=== PATIENT | female | born 1940 | race Caucasian/White ===

== ENCOUNTER 2020-06-15 | Emergency (ER) | payer MEDICARE, OTHER ==
[~2020-06-15] MED LIST: AMITRIPTYLINE H25 MG PO; ANTI-DIARRHE2 M1 PO; BL IBUPROFEN200 MG PO; CARBAMAZEPIN200 MG PO; CHOLESTYRAMINE4 G1 PO; CIPROFLOXACIN500 M1 PO; CITALOPRAM10 MG PO; COMBIVENT RESPIMAT IN; COZAAR50 MG PO; DITROPAN PO; GABAPENTIN100 MG PO; GABAPENTIN300 MG PO; GLIPIZIDE10 MG PO; IPRATROPIU0.5 MG/3 M IN; JANUVIA100 MG PO; KEFLEX500 M1 PO; LOMOTIL2.5 MG PO; LOSARTAN POT50 MG PO; METFORMIN1000 MG PO; METFORMIN500 M2 PO; METFORMIN500 MG PO; MYRBETRIQ25 MG; NAPROXEN500 MG PO; NEURONTIN300 MG PO; NITROFURANTOIN50 MG PO; SYMBICORT1 AE1 IN; TEGRETOL PO; TRUETRACK XX; TRULICITY0.75 MG/0. IJ
== END 2020-06-15 21:15 | disposition home or self-care (01) ==
DX: S00.03XA Contusion of scalp, initial encounter (principal); S00.01XA Abrasion of scalp, initial encounter; I10 Essential (primary) hypertension; F03.90 Unspecified dementia, unspecified severity, without behavioral disturbance, psychotic disturbance, mood disturbance, and anxiety; G50.0 Trigeminal neuralgia; F17.200 Nicotine dependence, unspecified, uncomplicated; W01.0XXA Fall on same level from slipping, tripping and stumbling without subsequent striking against object, initial encounter; Y92.099 Unspecified place in other non-institutional residence as the place of occurrence of the external cause

== ENCOUNTER 2020-06-17 | Emergency (ER) | payer MEDICARE, OTHER ==
[2020-06-17] MEDS ORDERED: NICODERM C21 MG/242 TOP (22:08)
== END 2020-06-17 22:40 ==
DX: S00.83XA Contusion of other part of head, initial encounter (principal); F03.90 Unspecified dementia, unspecified severity, without behavioral disturbance, psychotic disturbance, mood disturbance, and anxiety; I10 Essential (primary) hypertension; G50.0 Trigeminal neuralgia; Z87.891 Personal history of nicotine dependence; W18.30XA Fall on same level, unspecified, initial encounter; Y92.091 Bathroom in other non-institutional residence as the place of occurrence of the external cause

== ENCOUNTER 2020-06-21 21:38 | Observation (INO) | payer MEDICARE, OTHER ==
[~2020-06-21] VITALS: Ht 160 cm; Wt 86.0 kg
[~2020-06-21 21:38] MED LIST changes: +NICODERM C21 MG/242 TOP
--- NOTE | 2020-06-21 21:43 | NUR ---
PATIENT TO ROOM 10 VIA EMS, AAOX3
[2020-06-21 22:02] LABS: HEMATOCRIT 37.1 % (37.0-47.0); HEMOGLOBIN 12.5 g/dl (12.0-16.0); IMMATURE GRANULOCYTES 0.5 % (0.0-5.0); MEAN CELL VOLUME 92.1 fL CALC (80.0-100.0); MEAN CORPUSCULAR HGB CONC 33.7 g/dL CAL (32.0-36.0); NEUT# 3.88 thou/uL (2.00-7.15); RED BLOOD COUNT 4.03 mill/uL (4.20-5.60); RED CELL DISTRI WIDTH 12.7 % (11.5-15.5)
[2020-06-21 22:29] LABS: ALBUMIN 4.1 g/dL (3.2-5.0); ALKALINE PHOSPHATASE 98 u/l (38-126); ANION GAP 11 (6-22 (CALC)); BILIRUBIN, TOTAL 0.6 mg/dL (0.0-1.4); BUN 13 mg/dL (8-23); BUN/CREATININE RATIO 19 (12-20 (CALC)); CARBON DIOXIDE 30 mmol/l (22-30); CHLORIDE 91 mmol/l (95-108); CREATININE 0.7 mg/dL (0.5-1.0); GFR > 60 ML/MIN (>=60 (CALC)); GFR FOR AFR.AMER. > 60 ML/MIN (>=60 (CALC)); POTASSIUM 3.9 mmol/l (3.5-5.1); SGOT/AST 28 u/l (9-36); SODIUM 128 mmol/l (137-146); TOTAL PROTEIN 6.8 g/dL (6.3-8.2)
[2020-06-21 22:34] LABS: MYOGLOBIN 76 ng/mL (0 - 62)
--- NOTE | 2020-06-21 23:00 | NUR ---
PT RESTING COMFORTABLY ASKING FOR A SANDWICH
[2020-06-22] VITALS (7 sets, daily range): BP systolic 150–184; BP diastolic 67–80
--- NOTE | 2020-06-22 00:16 | NUR ---
GAVE REPORT RN AND THE OPPORTUNITY TO ASK QUESTIONS. TELE BOX APPLIED TO PT AND WILL TRANSPORT TO ROOM ASSIGNED
--- NOTE | 2020-06-22 01:35 | NUR ---
PATIENT ADMITTED FROM ER VIA STRETCHER WITH ER STAFF IN ATTENDANCE. PATIENT ADMITTED WITH HYPONATREMIA AND FREQUNT FALLS FROM THE [facility]. PATIENT WITH HEAD CONTUSION WELL. PATIENT IS VERY UNSTEADY ON HER FEET WHEN TRANSFERRED FROM STRETCHER TO BED WITH 2 ASSIST. PATIENT IS ALERT AND ORIENTED TO PERSON AND PLACE BUT ADMITS TO BEING VERY FORGETFUL. HX OF DEMENTIA PER [facility] RECORDS. ORIENTED TO PERSON AND TO HOSPITAL BUT NOT TO [facility]. THINKS THAT SHE IS AT HOSPITAL ON [facility]. STATES THAT SHE IS FROM [place]. ORIENTED TO PRESIDENT AND YEAR. DENIES ANY ALLERGIES. IV SITE TO LAC INTACT AND HEALTHY WITH GOOD BLOOD RETURN. IVF NS HUNG AND INFUSING AT 125CC/HR. PATIENT ADMITS THAT SHE IS INCONT OF BOTH BOWEL AND BLADDER-STATES THAT IT JUST COMES. PATIENT WITH SATURATED BREIF ON FROM [facility]. PERINEAL IS VERY RED AND IRRITATED. PERINEAL CARE GIVEN WITH SOAP AND WATER. BARRIER CREAM APPLIED TO AFFECTED AREA. THINKS THAT HER LAST BM WAS YESTERDAY. ABD IS SOFT WITH ACTIVE BS.LUNGS ARE CLEAR. NO COUGH.NO PERIPHERAL EDEMA NOTED. PULSES ARE PALPABLE. ORIENTED PATIENT TO ROOM AND SURROUNDIONGS. INSTRUCTED ON USE OF NURSE CALL [employer] SYSTEM, TV REMOTE AND PHONE. PURE WICK WAS APPLIED FOR URINARY INCONT. SAFETY PRECAUTIONS REINFORCED. BED ALARM IN PLACE FOR PATIENT SAFETY. CALL LIGHT IN REACH. WILL CONT TO MONITOR.
--- NOTE | 2020-06-22 04:30 | NUR ---
PATIENT RESTING IN BED AT THIS TIME WITH EYES CLOSED. RESPS ARE EVEN AND UNLABORED. TELE MONITOR IN PLACE. PUREWICK IN PLACE AND DRAINING YELLOW URINE. URINE SPEC OBTAINED AND SENT TO LAB. IVF NS PATENT AND INFUSING VIA LAC SITE. BED ALARM IN PLACE. CALL LIGHT IN REACH. WILL CONT TO MONITOR.
[2020-06-22 05:23] LABS: URINE BILIRUBIN - DIPSTICK NEGATIVE (NEGATIVE); URINE BLOOD DIPSTICK MODERATE (NEGATIVE); URINE COLOR YELLOW; URINE GLUCOSE - DIPSTICK NEGATIVE (NEGATIVE); URINE KETONE NEGATIVE (NEGATIVE); URINE PROTEIN - DIPSTICK NEGATIVE (NEG-TRACE); URINE SPECIFIC GRAVITY <=1.005; URINE UROBILINOGEN - DIPSTICK 0.2 E.U./dL (0.2)
[2020-06-22 05:30] LABS: URINE BACTERIA FEW hpf; URINE LEUK ESTERASE LARGE (NEGATIVE); URINE NITRITE - DIPSTICK NEGATIVE (Negative); URINE SQUAMOUS EPITHELIAL CELL FEW EPI/hpf (0-FEW); URINE WBC 50-100 WBC/hpf (0-5)
--- NOTE | 2020-06-22 07:13 | NUR ---
Patient is screened for rehab intervention and would benefit from PT consult and also at least a speech therapy screen for cognitive and or swallowing assessment if medical agrees
--- NOTE | 2020-06-22 08:27 | NUR ---
PT SEEN AWAKE, ALERT, ORIENTED X 3. LUNGS CLEAR, RA. NO DISTRESS. PT AT REST IN THE BED. PUREWICK IN PLACE.
--- NOTE | 2020-06-22 09:32 | NUR ---
NICOTINE PATCH PLACED ON RT SHOULDER
--- NOTE | 2020-06-22 12:41 | NUR ---
PT RESTS IN THE BED, NO DISTRESS. BRITTA LIVINGSTON HAS CALLED AND AN UPDATE WAS PROVIDED WITH PT'S PERMISSION, .
--- NOTE | 2020-06-22 15:47 | NUR ---
PT CALLS APPROPRIATELY FOR BSC, ASSISTED TO SAME. SHE IS SORE FROM FREQUENT FALLS, MOVING STIFFLY. NO DISTRESS, NO CONFUSION NOTED.
--- NOTE | 2020-06-22 20:00 | NUR ---
PATIENT RESTING IN BED AT THIS TIME-AWAKE ALERT AND ORIENTED TO PERSON AND KNOW SHE IS IN THE HOSPITAL-NOT SURE OF THE NAME. KNOWS HER AND PRESIDENT. FORGETFUL. TELE MONITOR IN PLACE. IVF NS PATENT AND INFUSING VIA LAC SITE AT 50CC/HR. SITE IS HEALTHY. PUREWICK IN PLACE FOR U RINE INCONT-DRAINING YELLOW URINE. PUREWICK WAS CHANGE AND PERINEAL CARE GIVEN-STILL RED AND BARRIER CREAM APPLIED. SAFETY PRECAUTIONS REINFORCED. BED ALARM IN LACE FOR PATIENT SAFETY. CALL LIGHT IN REACH. WILL CONT TO MONITOR.
[2020-06-23] VITALS: BP 171/78
--- NOTE | 2020-06-23 01:26 | NUR ---
PATIENT RESTING IN BED WITH HOB SLIGHTLY ELEVATED AND EYES CLOSED. RESPS ARE EVEN AND UNLABORED. TELE MONITOR IN PLACE. IVF PATENT AND INFUSING VIA LAC SITE AT 50CC/HR. PUREWICK DRAINING YELLOW URINE. CALL LIGHT IN REACH. BED ALARM IN PLACE FOR PAITENT SAFETY. CALL LIGHT IN REACH. WILL CONT TO MONITOR.
--- NOTE | 2020-06-23 04:04 | NUR ---
PATIENT RESTING IN BED WITH EYES CLOSED. RESPS ARE EVEN AND UNLABORED. APPEARS SLEEPING. TELE MONITOR IN PLACE. IVF NS PATENT AND INFUSING VIA LAC SITE AT 50CC/HR. PURE WICK CONT TO DRAIN YELLOW URINE. BED ALARM IN PLACE FOR PATIENT SAFETY. CALL LILGHT IN REACH. WILL CONT TO MONITOR.
[2020-06-23 04:09] VITALS: BP 150/68
[2020-06-23 05:39] LABS: HEMOGLOBIN 11.2 g/dl (12.0-16.0); MEAN CELL VOLUME 94.4 fL CALC (80.0-100.0); MEAN CORPUSCULAR HGB 31.1 pG CALC (26.0-32.0); MEAN CORPUSCULAR HGB CONC 32.9 g/dL CAL (32.0-36.0); RED BLOOD COUNT 3.6 mill/uL (4.20-5.60)
[2020-06-23 06:11] LABS: ANION GAP 8 (6-22 (CALC)); BUN 13 mg/dL (8-23); BUN/CREATININE RATIO 22 (12-20 (CALC)); CARBON DIOXIDE 29 mmol/l (22-30); CHLORIDE 101 mmol/l (95-108); CREATININE 0.6 mg/dL (0.5-1.0); GFR > 60 ML/MIN (>=60 (CALC)); GFR FOR AFR.AMER. > 60 ML/MIN (>=60 (CALC)); POTASSIUM 3.9 mmol/l (3.5-5.1); SODIUM 133 mmol/l (137-146)
--- NOTE | 2020-06-23 07:00 | NUR ---
RECIEVED REPORT FROM TIM MARTIN
[2020-06-23 07:34] VITALS: BP 160/75
--- NOTE | 2020-06-23 07:34 | NUR ---
PT RESTING IN SEMI FOWLERS POSITION UPON ENTERING ROOM. PT IS A/O X2. ASSESSMENT AND VITALS COMPLETED. BP 160/75, HR 66, O2 94% ON ROOM AIR. REPSIRATIONS ARE EVEN AND UNLABORED WITH NO DISTRESS NOTED. LUNG SOUNDS ARECLEAR. HEART RHYTHM IS NORMAL WITH TELE IN PLACE.BOWEL SOUNDS ARE ACTIVE. RADIAL AND PEDAL PULSES ARE STRONG. #20G IN LAC INFUSING WITH IVF @50, SITE REMAINS HEALTHY AND PATENT. PURE WHICK IN PLACE. SISSY REDDNED. PT DENIES OF ANY PAINS OR DISCOMFORTS AT THIS TIME. ALL SAFETY PRECAUTIONS ARE IN PLACE WITH CALL LIGHT IN REACH AND BED ALARM ACTIVATED. WILL CONTINUE TO MONITOR.
--- NOTE | 2020-06-23 09:30 | NUR ---
LARGE BM X2. SISSY CARE ADMINISTERED.NEW PURE WHICK APPLIED. PT DENIES OF ANY COMPLAINTS.ALL SAFETY PRECAUTIONS ARE IN PLACE WITH CALL LIGHT IN REACH. WILL CONTINUE TO MONITOR.
[2020-06-23 10:35] VITALS: BP 149/76
--- NOTE | 2020-06-23 11:23 | NUR ---
PT SLEEPING IN SEMI FOWLERS POSITION. REPSIRATIONS ARE EVEN AND UNLABORED WITH NO DISTRESS NOTED. IVF INFUSING PER ORDER, SITE REMAINS HEALTHY AND PATENT. ACCUCHECK RESULTING IN 138, NO COVERAGE NEEDED. NO SIGNS OF ANY PAINS OR DISCOMFORTS. ALL SAFETY PRECAUTIONS ARE IN PLACE WITH CALL LIGHT IN REACH. WILL CONTINUE TO MONITOR.
--- NOTE | 2020-06-23 12:40 | NUR ---
PT RESTING IN SEMI FOWLERS POSITION WATCHING TV.RESPIRATIONS ARE EVEN AND UNLABORED WITH NO DISTRESS NOTED.IVF INFUSING PER ORDER, SITE REMAINS HEALTHY AND PATENT.PURE WHICK REMAINS IN PLACE.TELE MONITORING IN PLACE.PT DENEIS OF ANY PAINS OR DISCOMFORTS. ALL SAFETY PRECAUTIONS ARE IN PLACE WITH CALL LIGHT IN REACH AND BED ALARM ACTIVE.WILL CONTINUE TO MONITOR.
[2020-06-23 15:00] VITALS: BP 140/76
--- NOTE | 2020-06-23 15:07 | NUR ---
FLATWORK ASSEMBLER NOTIFIED OF D/C TO [facility]. PT INFORMED. VERBALIZED UNDERSTANDING.
--- NOTE | 2020-06-23 15:47 | NUR ---
ATTEMPTED TO CALL FAMILY TO EDUCATE ON DISCHARGE INSTRUCTIONS. NO ANSWER. VOICE MAIL LEFT.WILL ATTEMPT AGAIN LATER ON.
--- NOTE | 2020-06-23 15:49 | NUR ---
NOTIFIED BY CM THAT ETA FOR RESTAURANT TEAM MEMBER WAS 650
--- NOTE | 2020-06-23 16:25 | NUR ---
PT RESTING IN SEMI FOWLERS POSITION. RESPIRATIONS ARE EVEN AND UNLABORED WITH NO DISTRESS NOTED ON ROOM AIR. #20G IN LAC REMOVED UPON ENTERING ROOM, CATHATER STILL INTACT. PURE WHCIK IN PLACE, LOW SUCTION. TELE MONITORING IN PLACE. PT DENIES OF ANY PAINS OR DISCOMFORTS.PT INFORMED OF ETA OF [facility]ICCK UP AT 1830, PT VERBLAIZED UNDERSTANDING. ALL SAFETY PRECAUTIONS ARE IN PLACE WITH CALL LIGHT IN REACH AND BED ALARM ACTIVE. WILL CONTINUE TO MONITOR
--- NOTE | 2020-06-23 17:54 | NUR ---
DAUGHTERIN LAW SHAHEEN INFORMED OF DISCHARGE INSTRUCTIONS.VERBLAIZED UNDERSTANDING.
--- NOTE | 2020-06-23 18:30 | NUR ---
Discharge instructions given. Patient verbalizes understanding of same. Discharged in stable condition via Wheelchair to Home with staff. All belongings sent with pt. PT DISCHARGED TO [facility] VIA [facility] TRANSPORT IN STABLE CONDITION WITH ALL DISCHARGE INSTRUCTIONS AND BELONGINGS. ASKED PT WHERE CELL PHONE WAS, PT STATED " I THREW IT AWAY, IT WASNT DOING ME ANY GOOD." MARRY RANGEL BEDSIDE TO WITNESS.
--- NOTE | 2020-06-23 18:48 | NUR ---
REPORT GIVEN TO JUAN MANUEL FROM [facility].
--- NOTE | 2020-06-23 19:12 | NUR ---
SHAHEEN CALLED AND INFORMED THAT PT STATED SHE THRW AWAY PHONE.
== END 2020-06-23 18:29 ==
LOC: ED 21:38 → ED-I 23:01 → ED 23:22 → MS2 23:23
PROVIDERS: Emergency Medicine; Nurse Practitioner; ADMIT Internal Medicine; ATTEND Internal Medicine
DX: S00.03XA Contusion of scalp, initial encounter (principal); E87.1 Hypo-osmolality and hyponatremia; N39.0 Urinary tract infection, site not specified; I10 Essential (primary) hypertension; E11.9 Type 2 diabetes mellitus without complications; F03.90 Unspecified dementia, unspecified severity, without behavioral disturbance, psychotic disturbance, mood disturbance, and anxiety; G50.0 Trigeminal neuralgia; F17.200 Nicotine dependence, unspecified, uncomplicated; W01.0XXA Fall on same level from slipping, tripping and stumbling without subsequent striking against object, initial encounter; Y92.099 Unspecified place in other non-institutional residence as the place of occurrence of the external cause; Z79.84 Long term (current) use of oral hypoglycemic drugs; Z91.81 History of falling; Z20.822 Contact with and (suspected) exposure to COVID-19
CPT/HCPCS: G0378; J1650

== ENCOUNTER 2020-09-25 12:19 | Inpatient (IN) | payer MEDICARE, OTHER ==
[~2020-09-25] VITALS: Ht 160 cm; Wt 72.0 kg
--- NOTE | 2020-09-25 12:19 | NUR ---
PT ARRIVES VIA EMS STRETHER TO ROOM # 3
[2020-09-25] MEDS ORDERED: POT CHLORIDE10 ME5 PO (12:46)
[2020-09-25] MEDS ORDERED: FUROSEMIDE20 MG PO (12:47)
[2020-09-25] MEDS ORDERED: FIBER-LAX625 MG PO (12:47)
[2020-09-25] MEDS ORDERED: COMBIVENT RESPIMAT IN (12:49)
[2020-09-25 13:04] LABS: HEMATOCRIT 38.9 % (37.0-47.0); HEMOGLOBIN 12.6 g/dl (12.0-16.0); IMMATURE GRANULOCYTES 0.4 % (0.0-5.0); MEAN CORPUSCULAR HGB 30.4 pG CALC (26.0-32.0); MEAN CORPUSCULAR HGB CONC 32.4 g/dL CAL (32.0-36.0); NEUT# 2.92 thou/uL (2.00-7.15); RED BLOOD COUNT 4.14 mill/uL (4.20-5.60); RED CELL DISTRI WIDTH 13.2 % (11.5-15.5)
[2020-09-25 13:23] LABS: ALBUMIN 4.2 g/dL (3.2-5.0); ALKALINE PHOSPHATASE 92 u/l (38-126); ANION GAP 13 (6-22 (CALC)); BUN 18 mg/dL (8-23); BUN/CREATININE RATIO 28 (12-20 (CALC)); CARBON DIOXIDE 31 mmol/l (22-30); CHLORIDE 91 mmol/l (95-108); CREATININE 0.7 mg/dL (0.5-1.0); GFR > 60 ML/MIN (>=60 (CALC)); GFR FOR AFR.AMER. > 60 ML/MIN (>=60 (CALC)); SGOT/AST 24 u/l (9-36); SODIUM 132 mmol/l (137-146); TOTAL PROTEIN 7.4 g/dL (6.3-8.2)
[2020-09-25 13:26] LABS: BILIRUBIN, TOTAL 0.2 mg/dL (0.0-1.4)
--- NOTE | 2020-09-25 13:30 | NUR ---
pt laying in supine position, denies any needs at this time. states having pain only when moved
--- NOTE | 2020-09-25 14:34 | NUR ---
PHONED CASE MANAGEMENT REFERENCE FAMILY NOT WANTING PATIENT TRANFERRED TO [facility]. SPOKE WITH GÉNESIS. PATIENT IS ALERT AND ORIENTED X3. POA AT BEDSIDE. PATIENT STATES THAT SHE DOES NOT WANT SURGERY AND ONLY REQUESTS PAIN MANAGEMENT. POA AGREES WELL AND STATES THAT THIS WAS THE FAMILY AND PATIENTS AGREEMENT IN PRIOR YEARS WELL. PATIENT AND FAMILY AGREES FOR PATIENT TO BE ADMITTED TO [facility] FOR PAIN MANAGEMENT AND [facility] PLACEMENT. DR FRANCISCO NOTIFIED.
--- NOTE | 2020-09-25 14:53 | NUR ---
two white rings were taken off of pt and given to the daughter in law
--- NOTE | 2020-09-25 15:10 | NUR ---
pt resting on stretcher. estes cath applied and linens changed.
--- NOTE | 2020-09-25 15:45 | NUR ---
pt asked to be repositioned. pt was made aware that with movement, it would cause much pain. pt verbalized understanding and states "just move it from where it is now, it hurts." once i did she yelled in pain. she then decided not to be repositioned. pt made comfortable best as possible.
[2020-09-25 16:00] VITALS: BP 179/83
--- NOTE | 2020-09-25 16:20 | NUR ---
gave report to aneta
--- NOTE | 2020-09-25 16:40 | NUR ---
Admission Note Report Given to: SHAMA Transported by: Wheelchair X Stretcher Transported with: X Nurse Transporter X Patent IV O2 Separator Tender Location: ICU X MS2
--- NOTE | 2020-09-25 17:19 | NUR ---
PT ARRIVES TO ROOM 280 FROM ER VIA STRETCHER, ACCOMPANIED BY TYREL DUMONT. PT IS ALERT AND ORIENTED X 3. LUNGS CLEAR, RA. PT WITH LEFT FEMORAL FRACTURE, UNCOMFORTABLE DURING TRANSFER TO BED. PILLOWS PLACED WHERE NEEDED, LESS UNCOMFORTABLE NOW.
[2020-09-25 18:42] VITALS: BP 160/70
[2020-09-25 20:30] VITALS: BP 160/70
--- NOTE | 2020-09-26 | NUR ---
Hourly rounding, PT refused any pain at this time. Re-educated about pain management and falls precautions. Lazaro catheter in place.
[2020-09-26 04:00] VITALS: BP 135/71
--- NOTE | 2020-09-26 04:25 | NUR ---
Hourly rouding. Pt observed calms, sleeping and resting, refuse pain at this time. Re-educated about falls amd safety precautions.
--- NOTE | 2020-09-26 04:30 | NUR ---
Hourly rounding. PT observed calm and sleep. Vitals signs are stable, refused pain at this time.
[2020-09-26 15:38] VITALS: BP 152/83
--- NOTE | 2020-09-26 20:00 | NUR ---
RECEIVED REPORT FROM MS.MARIE DUMONT. PT ORIENTED TO PERSON AND PLACE. VITAL ARE STABLE, REFUSED PAIN AT THIS TIME. EDUCATED PT ABOUT PLAN OF CARE, MEDICATIONS AND FALLS PRECAUTIONS.
[2020-09-26 21:05] VITALS: BP 154/75
[2020-09-26 21:10] VITALS: BP 121/80
[2020-09-26 21:15] VITALS: BP 154/75
--- NOTE | 2020-09-27 00:43 | NUR ---
HOURLY ROUNDING PT OBSERVED SLEEP AND CALM, REFUSED ANY AT THIS TIME, VITAL SIGNS ARE STABLE. RE-EDUCATED ABOUT PLAN OF CARE AND FALLS PRECAUTIONS.
--- NOTE | 2020-09-27 04:27 | NUR ---
HOURLY ROUNDING. PT OBSERVED CALM AND SLEEP, NO COMPLAINS ABOUT PAIN. RE-EDUCATED ABOUT FALLS PRECAUTIONS.
[2020-09-27 05:59] LABS: HEMOGLOBIN 10.9 g/dl (12.0-16.0); IMMATURE GRANULOCYTES 0.1 % (0.0-5.0); MEAN CELL VOLUME 93.4 fL CALC (80.0-100.0); MEAN CORPUSCULAR HGB 31.1 pG CALC (26.0-32.0); MEAN CORPUSCULAR HGB CONC 33.3 g/dL CAL (32.0-36.0); NEUT# 4.08 thou/uL (2.00-7.15); RED BLOOD COUNT 3.5 mill/uL (4.20-5.60); RED CELL DISTRI WIDTH 13.5 % (11.5-15.5)
[2020-09-27 06:00] VITALS: BP 145/74
[2020-09-27 06:01] LABS: HEMATOCRIT 32.7 % (37.0-47.0)
[2020-09-27 06:17] LABS: ANION GAP 10 (6-22 (CALC)); BUN 18 mg/dL (8-23); BUN/CREATININE RATIO 30 (12-20 (CALC)); CARBON DIOXIDE 30 mmol/l (22-30); CHLORIDE 94 mmol/l (95-108); CREATININE 0.6 mg/dL (0.5-1.0); GFR > 60 ML/MIN (>=60 (CALC)); GFR FOR AFR.AMER. > 60 ML/MIN (>=60 (CALC)); POTASSIUM 3.8 mmol/l (3.5-5.1); SODIUM 130 mmol/l (137-146)
[2020-09-27 07:05] VITALS: BP 142/70
--- NOTE | 2020-09-27 07:05 | NUR ---
PATIENT LAYING IN BED AT THIS TIME. IV FOUND DISLODGED AT THIS TIME. PATIENT ALERT TO NAME ONLY. PATIENT DENIES ANY PAIN. RUELAS PATENT AND DRAINING YELLOW URINE. SIDERAILS ARE UP X3 CALL LIGHT WITHIN REACH.
--- NOTE | 2020-09-27 11:20 | NUR ---
SPOKE TO PATIENT WITH GENERAL ACCOUNTING CLERK AT BEDSIDE. PATEINT IS ALERT AND ORINETED AND IT WAS EXPLAINED TO PATIENT THAT ORTHROPIDIC DR. NARAYAN HAS ASKED THAT SHE BE TRANSFERED TO [facility] UNDER THE ADMITTING DR. HANS MIXON AND THAT HE WOULD DO SURGERY ON HER TO FIX HER LEG ON SUNDAY. PATIENT STATED SHE UNDERSTOOD AND WANTER HER LEG TO BE FIXED "THE SOONER THE BETTER" SHE REPLIED. PATIENT WAS INFORMED THAT HER DAUGHTER WOULD BE CALLED AND ADVISED AND SHE STATED OKAY.
--- NOTE | 2020-09-27 11:30 | NUR ---
PATIENT'S DAUGHTER CALLED AT THIS TIME. DAUGHTER ADVISED THAT DR. NARAYAN WANTS PATIENT TO BE TRANSFERRED TO [facility] TODAY FOR PENDING SURGERY ON SUNDAY AND THAT PATIENT AGREED AND UNDERSTOOD PROCEEDURE OF TRANSFER AND THAT PATIENT STATED "THE SOONER THE BETTER". DAUGHTER STATED "NO" WE DON'T WANT THAT. DAUGHTER STATED THAT HER AND HER BROTHER AND MOTHER AGREED THAT SHE WAS TO BE "COMFORT MEASURES ONLY". DAUGTHER STATED THAT SHE HAS POWER OF ADVERTISING COPYWRITER AND THAT SHE DOESN'T WANT HER MOM TO HAVE THIS SURGERY. DAUGHTER ADVISED TO SEND POWER OF ADVERTISING COPYWRITER RECORDS OVER TO CRIMPING MACHINE OPERATOR FOR METAL AND DNR. DAUGHTER ALSO TOLD THAT PATIENT IS ALERT AND ORIENTED AND STATED SHE WANTED TO HAVE THE SURGERY AND TO BE TRANSFERRED AT THIS TIME. DAUGHTER STATED THIS IS NOT TO HAPPEN WITHOUT HER AND HER BROTHER SPEAKING TO THE PATIENT. PATIENT FAMILY ADVISED THAT WE WILL SPEAK TO THE ROUNDING PHYSICANS AND WILL FOLLOW UP WITH THEM.
--- NOTE | 2020-09-27 12:15 | NUR ---
PATIENT LAYING IN BED AT THIS TIME. ALERT AND ORIENTED EATING LUNCH. STATES HER PAIN IS ONLY A 1 AT THIS TIME. SIDERAILS ARE UP CALL LIGHT IS WITHIN REACH AT THIS TIME.
--- NOTE | 2020-09-27 13:29 | NUR ---
SPOKE TO JOON MAX REGARDING IV ACCESS ON PATIENT AND SHE GAVE ORDER TO D/C IV ACCESS AT THIS TIME.
--- NOTE | 2020-09-27 14:00 | NUR ---
HOSPICE IN TO SEE PATIENT AT THIS TIME.
--- NOTE | 2020-09-27 14:50 | NUR ---
PATIENT WHEN ASKED IF SHE IS HAVING PAIN PATIENT STATES "NO" AT THIS TIME. PATIENT RESTING IN BED SIDERAILS ARE UP CALL LIGHT WITHIN REACH RUELAS PATENT AND DRAINING STRAW COLOR URINE.
--- NOTE | 2020-09-27 15:18 | NUR ---
SPOKE TO PATIENT AT THIS TIME IN FRONT OF JOAO DUMONT (PATIENT EXPERIENCE COORDINATOR). PATIENT ASKED TO REVOKE POWER OF POULTRY TRIMMER AT THIS TIME. PATIENT STATING SHE WANTS TO HAVE THE SURGERY AND TO BE TRANSFERED. ALL INFORMATION PASSED TO DR. ALCALA AND JOE MAX APRN.
--- NOTE | 2020-09-27 16:50 | NUR ---
Attempted functional assessment. The patient is far too painful upon movement to make a reasonable effort at any sort of functional mobility. He LLE is in an exterally rotated position and the slightest of motion causes her terrible pain. She voiced to me that she would prefer to have surgery if it meant greater comfort
[2020-09-27 18:53] VITALS: BP 137/68
[2020-09-27 19:51] VITALS: BP 141/64
--- NOTE | 2020-09-27 20:00 | NUR ---
PATIENT APPEARS TO BE SLEEPING, PATIENT HAS NO IV SITE FROZEN FOOD DEPARTMENT MANAGER AWARE, LUNG SOUNDS CLEAR, BOWEL SOUNDS ACTIVE, STATED LAST BM WAS SUNDAY, DENIES PAIN AT THIS TIME AND WILL HAVE PAIN WHEN MOVING, HAS INDWELLING RUELAS CATHETER DRAINING YELLOW COLORED URINE, BREATHING UNLABORED CALL LIGHT AT REACH.
--- NOTE | 2020-09-27 21:00 | NUR ---
INFORMED MANAGEMENT INSTRUCTOR PATIENT REQUESTING FOR PAIN MEDICATION, RES HAS NO IV SITE, DONT WANT TO BE REINSERTED, MANAGEMENT INSTRUCTOR AWARE.
--- NOTE | 2020-09-28 | NUR ---
PATIENT APPEARS TO BED SLEEPING WITH EYES CLSOED, BREATHING EVEN UNLABORED, NO DISCOMFORTS NOTED AT THIS TIME, CALL LIGHT IN REACH, BED ALARM IN PLACE.
--- NOTE | 2020-09-28 04:00 | NUR ---
PATIENT APPEARS TO BE SLEEPING WITH EYES CLOSED, BREATHING UNLBAORED CALL LIGHT AT REACH.
[2020-09-28 05:21] VITALS: BP 143/68
[2020-09-28 06:34] LABS: HEMATOCRIT 32.3 % (37.0-47.0); HEMOGLOBIN 10.7 g/dl (12.0-16.0); MEAN CELL VOLUME 94.4 fL CALC (80.0-100.0); MEAN CORPUSCULAR HGB 31.3 pG CALC (26.0-32.0); MEAN CORPUSCULAR HGB CONC 33.1 g/dL CAL (32.0-36.0); RED BLOOD COUNT 3.42 mill/uL (4.20-5.60); RED CELL DISTRI WIDTH 13.4 % (11.5-15.5)
[2020-09-28 06:42] LABS: ALKALINE PHOSPHATASE 58 u/l (38-126); ANION GAP 10 (6-22 (CALC)); BUN 20 mg/dL (8-23); BUN/CREATININE RATIO 32 (12-20 (CALC)); CARBON DIOXIDE 30 mmol/l (22-30); CHLORIDE 96 mmol/l (95-108); CREATININE 0.6 mg/dL (0.5-1.0); GFR > 60 ML/MIN (>=60 (CALC)); GFR FOR AFR.AMER. > 60 ML/MIN (>=60 (CALC)); SGOT/AST 23 u/l (9-36); SODIUM 131 mmol/l (137-146)
[2020-09-28 06:46] LABS: ALBUMIN 3.1 g/dL (3.2-5.0); BILIRUBIN, TOTAL 0.3 mg/dL (0.0-1.4); TOTAL PROTEIN 5.6 g/dL (6.3-8.2)
--- NOTE | 2020-09-28 07:00 | NUR ---
SHIFT CHANGE REPORT, AWAKE AND ALERT, ORIENTED TO PLACE, PERSON AND PARTIAL TIME, DENIES PAIN AT THIS TIME BUT STATES HER HIP HURTS BADLY WHEN BEING MOVED, RUELAS CATHETER IN PLACE WITH SEDEMENTED YAMILET URINE, GLASSES IN PLACE, PARTIAL UPPER DENTURE IN PLACE, CALL BERRIOS IN REACH AND BED LOCKED IN LOWEST POSITION WITH ALARM ON.
[2020-09-28 07:59] VITALS: BP 135/63
[2020-09-28 09:03] VITALS: BP 135/63
--- NOTE | 2020-09-28 10:30 | NUR ---
REPORT CALLED TO PAMELA AT [facility], PT IS STILL INHOUSE AND EXPECTED TO LEAVE APPROX 1100.
--- NOTE | 2020-09-28 11:49 | NUR ---
Discharge instructions given. Patient verbalizes understanding of same. Discharged in poor condition via Medical Transport to [facility] with *Other. All belongings sent with pt. TRANSFERRED TO [facility]
== END 2020-09-28 11:39 | disposition short-term general hospital (02) | DRG 534 ==
LOC: ED 12:19 → ED-I 14:24 → ED 14:34 → MS2 14:35
PROVIDERS: Emergency Medicine; Nurse Practitioner Family; ADMIT Internal Medicine; ATTEND Internal Medicine
PROC: 0T9B70Z Drainage of Bladder with Drainage Device, Via Natural or Artificial Opening (ICD-10-PCS; principal; 2020-09-25)
DX: S72.302A Unspecified fracture of shaft of left femur, initial encounter for closed fracture (principal); E87.1 Hypo-osmolality and hyponatremia; I10 Essential (primary) hypertension; E11.9 Type 2 diabetes mellitus without complications; F03.90 Unspecified dementia, unspecified severity, without behavioral disturbance, psychotic disturbance, mood disturbance, and anxiety; G50.0 Trigeminal neuralgia; W01.0XXA Fall on same level from slipping, tripping and stumbling without subsequent striking against object, initial encounter; Y93.89 Activity, other specified; Y92.099 Unspecified place in other non-institutional residence as the place of occurrence of the external cause; Z79.84 Long term (current) use of oral hypoglycemic drugs; Z87.440 Personal history of urinary (tract) infections; Z79.899 Other long term (current) drug therapy; Z20.822 Contact with and (suspected) exposure to COVID-19